=== PATIENT | male | born 1975 ===

== ENCOUNTER 2022-05-14 17:09 | Emergency (ER) | payer OTHER, BC ==
[~2022-05-14] VITALS: Ht 162.6 cm; Wt 57.1 kg
[~2022-05-14 17:09] MED LIST: CYCL10 PO; NAPR500 PO
== END 2022-05-14 18:12 | disposition home or self-care (01) ==
LOC: ER 17:09
DX: M54.2 Cervicalgia (principal); M25.512 Pain in left shoulder; V47.5XXA Car driver injured in collision with fixed or stationary object in traffic accident, initial encounter
CPT/HCPCS: 99283

== ENCOUNTER → 2023-03-05 | Outpatient (CLI) | payer BC | END | disposition home or self-care (01) | LOC: LAB 06:35 → LAB SHORT 06:35 | DX: Z20.1 Contact with and (suspected) exposure to tuberculosis (principal) | CPT/HCPCS: 87070; 87205 ==

== ENCOUNTER → 2023-03-09 | Outpatient (CLI) | payer BC ==
[2023-03-15 08:28] LABS: MISCELLANEOUS TEST Negative
== END | disposition home or self-care (01) ==
LOC: LAB 07:16 → LAB SHORT 07:16
PROVIDERS: Student in an Organized Health Care Education/Training Program
DX: Z22.7 Latent tuberculosis (principal)
CPT/HCPCS: 87206; 87581